=== PATIENT | female | born 1990 | race American Indian/Alaskan Native ===

== ENCOUNTER 2017-12-13 10:22 | Emergency (ER) | payer OTHER, MEDICAID ==
[2017-12-13 11:06] VITALS: BP 128/57
[2017-12-13] MEDS ORDERED: MOTRIN PO ONE (12:16)
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
== END 2017-12-13 12:45 | disposition home or self-care (01) ==
LOC: ED 10:22
DX: S13.4XXA Sprain of ligaments of cervical spine, initial encounter (principal); S39.012A Strain of muscle, fascia and tendon of lower back, initial encounter; F12.10 Cannabis abuse, uncomplicated; V89.2XXA Person injured in unspecified motor-vehicle accident, traffic, initial encounter; Y93.89 Activity, other specified; Y92.89 Other specified places as the place of occurrence of the external cause; Y99.8 Other external cause status
CPT/HCPCS: 99282